=== PATIENT | male | born 1970 | race Hispanic/Latino ===

== ENCOUNTER 2016-12-22 19:18 | Inpatient (IN) | payer MEDICARE ==
[2016-12-22 20:28] LABS: Basophils % (Auto) 0.7 % (0.0-1.8); Eosinophils % (Auto) 2.9 % (0.0-4.3); Hematocrit 41.9 % (35.5-45.6); Hemoglobin 14.1 gm/dl (11.8-15.2); Mean Corpuscular HGB Conc 34 % (32-34); Mean Corpuscular Hemoglobin 32 pg (28-32); Mean Corpuscular Volume 94 fl (84-94); Platelet Count 133 K/mm3 (140-440); Red Blood Count 4.46 M/mm3 (3.65-5.03); Red Cell Distribution Width 13.3 % (13.2-15.2)
[2016-12-22] MEDS ORDERED: SUBLIMAZE IV ONE (20:49)
[2016-12-22] MEDS ORDERED: NITRO-BID 2% TP ONE (20:49)
[2016-12-22] MEDS ORDERED: ZOFRAN IV ONE (20:49)
--- NOTE | 2016-12-22 20:55 | Emergency Department Report ---
HPI - General Chief Complaint: Chest Pain Time Seen by Provider: 12/22/16 19:34 - HPI HPI: Room 19 The patient is a 38-year-old male presenting with a chief complaint of chest pain. Patient is currently at [facility] for suicidal ideation or intent 13. Patient states today he was walking to the gym developed left-sided chest pain described as a pressure or an elephant sitting on his chest. Patient states the pain radiated to his left upper extremity and caused him to fall to the ground. Patient states he became short of breath, diaphoretic and nauseous with the pain. Patient denies vomiting. The patient currently gives his pain a score of 8/10. The patient states his last stress test occurred 3-4 years ago his last cardiac catheterization occurred approximately 4 years ago. Location: Left chest Duration: Constant Quality: Pressure Severity: 8/10 Modifying factors: [see above] Context: [see above] Mode of transportation: [not driving] ED Past Medical Hx - Past Medical History Previous Medical History?: Yes Hx Heart Attack/AMI: Yes (2013) Hx GERD: Yes Hx Psychiatric Treatment: Yes (In [facility] now for ) Additional medical history: chronic pain (herniated disc), depression - Surgical History Past Surgical History?: Yes Hx Cholecystectomy: Yes Hx Appendectomy: Yes - Family History Family history: no significant - Social History Smoking Status: Current Every Day Smoker (1/2 pack per day) Substance Use Type: None (denies illicit drug use) - Medications Home Medications: Home Medications Medication Instructions Recorded Confirmed Last Taken Type Quetiapine Fumarate [SEROquel XR] 300 mg PO QHS 08/30/13 12/09/13 12/06/13 21: 30 History Sertraline HCl [Zoloft] 25 mg PO BID 08/30/13 12/09/13 12/06/13 12:00 History Lisinopril [Zestril TAB] 5 mg PO QDAY #30 tablet 12/15/13 Unknown Rx Nicotine [Habitrol] 21 mg TD QDAY #30 patch 12/15/13 Unknown Rx ED Review of Systems ROS: Stated complaint: CP Other details as noted in HPI Comment: All other systems reviewed and negative Constitutional: diaphoresis. denies: chills, fever Eyes: denies: eye pain, eye discharge, vision change ENT: denies: ear pain, throat pain Respiratory: shortness of breath Cardiovascular: chest pain Endocrine: no symptoms reported Gastrointestinal: nausea. denies: vomiting Genitourinary: denies: urgency, dysuria Musculoskeletal: denies: back pain, joint swelling, arthralgia Skin: denies: rash, lesions Neurological: denies: headache, weakness, paresthesias Psychiatric: suicidal thoughts (at [place]) Hematological/Lymphatic: denies: easy bleeding, easy bruising Physical Exam - Physical Exam Vital Signs: Vital Signs 12/22/16 12/22/16 12/22/16 19:14 19:22 19:30 Temperature 98.2 F Pulse Rate 66 62 Respiratory 19 16 21 Rate Blood Pressure 116/60 116/71 Blood Pressure 116/60 [Left] O2 Sat by Pulse 98 98 Oximetry 12/22/16 12/22/16 12/22/16 19:31 20:00 20:30 Temperature Pulse Rate 66 63 Respiratory 16 18 19 Rate Blood Pressure 106/65 105/66 Blood Pressure [Left] O2 Sat by Pulse 98 98 96 Oximetry Physical Exam: GENERAL: The patient is well-developed well-nourished male lying on stretcher appearing to be in mild discomfort. [] HEENT: Normocephalic. Atraumatic. Extraocular motions are intact. Patient has moist mucous membranes. NECK: Supple. Trachea midline CHEST/LUNGS: Clear to auscultation. There is no respiratory distress noted. HEART/CARDIOVASCULAR: Regular. There is no tachycardia. There is no gallop rub or murmur. ABDOMEN: Abdomen is soft, nontender. Patient has normal bowel sounds. There is no abdominal distention. SKIN: There is no rash. There is no edema. There is no diaphoresis. NEURO: The patient is awake, alert, and oriented. The patient is cooperative. The patient has normal speech MUSCULOSKELETAL: There is no evidence of acute injury. ED Course Vital Signs 12/22/16 12/22/16 12/22/16 19:14 19:22 19:30 Temperature 98.2 F Pulse Rate 66 62 Respiratory 19 16 21 Rate Blood Pressure 116/60 116/71 Blood Pressure 116/60 [Left] O2 Sat by Pulse 98 98 Oximetry 12/22/16 12/22/16 12/22/16 19:31 20:00 20:30 Temperature Pulse Rate 66 63 Respiratory 16 18 19 Rate Blood Pressure 106/65 105/66 Blood Pressure [Left] O2 Sat by Pulse 98 98 96 Oximetry ED Medical Decision Making - Lab Data Result diagrams: 12/22/16 20:05 12/22/16 20:05 Laboratory Tests 12/22/16 12/22/16 12/22/16 20:05 20:05 20:05 WBC 7.0 RBC 4.46 Hgb 14.1 Hct 41.9 MCV 94 MCH 32 MCHC 34 RDW 13.3 Plt Count 133 L Lymph % (Auto) 28.9 [place] % (Auto) 9.0 H Eos % (Auto) 2.9 Baso % (Auto) 0.7 Lymph # 2.0 [place] # 0.6 Eos # 0.2 Baso # 0.1 Seg Neutrophils % 58.5 Seg Neutrophils # 4.1 Sodium 144 Potassium 4.3 Chloride 105.1 Carbon Dioxide 27 Anion Gap 16 BUN 7 L Creatinine 0.8 Estimated GFR > 60 BUN/Creatinine Ratio 8.75 Glucose 86 Calcium 8.7 Total Bilirubin 0.20 AST 14 ALT 12 Alkaline Phosphatase 72 Troponin T < 0.010 Total Protein 5.9 L Albumin 3.4 L Albumin/Globulin Ratio 1.4 12/22/16 22:07 WBC RBC Hgb Hct MCV MCH MCHC RDW Plt Count Lymph % (Auto) [place] % (Auto) Eos % (Auto) Baso % (Auto) Lymph # [place] # Eos # Baso # Seg Neutrophils % Seg Neutrophils # Sodium Potassium Chloride Carbon Dioxide Anion Gap BUN Creatinine Estimated GFR BUN/Creatinine Ratio Glucose Calcium Total Bilirubin AST ALT Alkaline Phosphatase Troponin T < 0.010 Total Protein Albumin Albumin/Globulin Ratio - EKG Data -: EKG Interpreted by Me EKG shows normal: sinus rhythm Rate: normal - EKG Data When compared to previous EKG there are: previous EKG unavailable Interpretation: other (no ischemic changes seen) - Radiology Data Radiology results: image reviewed (chest x-ray) interpreted by me: Chest x-ray-no definite focal infiltrates, no pneumothorax - Differential Diagnosis ACS, malingering, GERD, pericarditis Critical care attestation.: If time is entered above; I have spent that time in minutes in the direct care of this critically ill patient, excluding procedure time. ED Disposition Clinical Impression: Chest pain Disposition: OP ADMIT IP TO THIS HOSP Is pt being admited?: Yes Does the pt Need Aspirin: No (Plavix) Condition: Fair Instructions: Chest Pain (ED) Referrals: PRIMARY CARE, [Primary Care Provider] - 3-5 Days Time of Disposition: 22:58 (hospitalist notified)
[2016-12-22 21:02] LABS: Alanine Aminotransferase 12 units/L (7-56); Albumin 3.4 g/dL (3.9-5); Albumin/Globulin Ratio 1.4 %; Alkaline Phosphatase 72 units/L (35-129); Anion Gap 16 mmol/L; BUN/Creatinine Ratio 8.75; Blood Urea Nitrogen 7 mg/dL (9-20); Calcium 8.7 mg/dL (8.4-10.2); Carbon Dioxide 27 mmol/L (22-30); Chloride 105.1 mmol/L (98-107); Glucose 86 mg/dL (75-100); Potassium 4.3 mmol/L (3.6-5.0); Sodium 144 mmol/L (137-145); Total Protein 5.9 g/dL (6.3-8.2)
--- NOTE | 2016-12-22 21:43 | XRay Report ---
FINAL REPORT EXAM: XR CHEST 1V AP HISTORY: chest pain COMPARISON: None available. FINDINGS: Frontal view(s) of the chest obtained. Cardiac silhouette within normal limits. Shallow inspiration. Crowding of the bronchovascular markings. Mild linear atelectasis at the left lung base. Otherwise, no gross consolidation or effusion. No pneumothorax. Remote left-sided rib fractures. IMPRESSION: Shallow inspiration. Mild linear atelectasis at the left lung base. Lungs are otherwise grossly clear.
--- NOTE | 2016-12-22 22:32 | History and Physical Report ---
History of Present Illness Date of examination: 12/22/16 Date of admission: 12/22/2016 Chief complaint: Left-sided chest pain for last 4-6 hours History of present illness: The patient is a 38-year-old male presenting with a chief complaint of chest pain. Patient is currently at [facility] for suicidal ideation or intent 13. Patient states today he was walking to the gym developed left-sided chest pain described as a pressure or an elephant sitting on his chest. Patient states the pain radiated to his left upper extremity and caused him to fall to the ground. Patient states he became short of breath, diaphoretic and nauseous with the pain. Patient denies vomiting. The patient currently gives his pain a score of 8/10. The patient states his last stress test occurred 3-4 years ago his last cardiac catheterization occurred approximately 4 years ago. Location: Left chest Duration: Constant Quality: Pressure Severity: 8/10 Modifying factors: [see above] Context: [see above] Mode of transportation: [not driving] ED Past Medical Hx - Past Medical History Previous Medical History?: Yes Hx Heart Attack/AMI: Yes (2013) Hx GERD: Yes Hx Psychiatric Treatment: Yes (In [facility] now for ) Additional medical history: chronic pain (herniated disc), depression - Surgical History Past Surgical History?: Yes Hx Cholecystectomy: Yes Hx Appendectomy: Yes - Family History Family history: no significant - Social History Smoking Status: Current Every Day Smoker (1/2 pack per day) Substance Use Type: None (denies illicit drug use) - Medications Home Medications: Home Medications Medication Instructions Recorded Confirmed Last Taken Type Quetiapine Fumarate [SEROquel XR] 300 mg PO QHS 08/30/13 12/09/13 12/06/13 21: 30 History Sertraline HCl [Zoloft] 25 mg PO BID 08/30/13 12/09/13 12/06/13 12:00 History Lisinopril [Zestril TAB] 5 mg PO QDAY #30 tablet 12/15/13 Unknown Rx Nicotine [Habitrol] 21 mg TD QDAY #30 patch 12/15/13 Unknown Rx ED Review of Systems ROS: Stated complaint: CP Other details as noted in HPI Comment: All other systems reviewed and negative Constitutional: diaphoresis. denies: chills, fever Eyes: denies: eye pain, eye discharge, vision change ENT: denies: ear pain, throat pain Respiratory: shortness of breath Cardiovascular: chest pain Endocrine: no symptoms reported Gastrointestinal: nausea. denies: vomiting Genitourinary: denies: urgency, dysuria Musculoskeletal: denies: back pain, joint swelling, arthralgia Skin: denies: rash, lesions Neurological: denies: headache, weakness, paresthesias Psychiatric: suicidal thoughts (at [place]) Hematological/Lymphatic: denies: easy bleeding, easy bruising Past History Past Medical History: CAD, hypertension Medications and Allergies Allergies Allergy/AdvReac Type Severity Reaction Status Date / Time ketorolac tromethamine Allergy Rash Verified 08/30/13 18:53 [From Toradol] tramadol HCl [From Ultram] Allergy Vomiting Verified 08/30/13 18:53 aspirin AdvReac Unknown Unknown Verified 12/22/16 23:47 Home Medications Medication Instructions Recorded Confirmed Last Taken Type Quetiapine Fumarate [SEROquel XR] 300 mg PO QHS 08/30/13 12/09/13 12/06/13 21: 30 History Sertraline HCl [Zoloft] 25 mg PO BID 08/30/13 12/09/13 12/06/13 12:00 History Lisinopril [Zestril TAB] 5 mg PO QDAY #30 tablet 12/15/13 Unknown Rx Nicotine [Habitrol] 21 mg TD QDAY #30 patch 12/15/13 Unknown Rx Review of Systems All systems: negative Exam - Physical Exam Narrative exam: Young male lying comfortably - Constitutional Vitals: Temp Pulse Resp BP Pulse Ox 98.2 F 56 L 16 105/61 94 12/22/16 19:22 12/22/16 21:45 12/22/16 21:45 12/22/16 21:45 12/22/16 21:45 General appearance: Present: no acute distress, well-nourished - EENT Eyes: Present: PERRL ENT: hearing intact, clear oral mucosa - Neck Neck: Present: supple, normal ROM - Respiratory Respiratory effort: normal Respiratory: bilateral: CTA - Cardiovascular Heart Sounds: Present: S1 & S2. Absent: rub, click - Extremities Extremities: pulses symmetrical, No edema Peripheral Pulses: within normal limits - Abdominal General gastrointestinal: Present: soft, non-tender, non-distended, normal bowel sounds Male genitourinary: Present: normal - Integumentary Integumentary: Present: clear, warm, dry - Musculoskeletal Musculoskeletal: gait normal, strength equal bilaterally - Psychiatric Psychiatric: appropriate mood/affect, intact judgment & insight - Neurologic Neurologic: CNII-XII intact, moves all extremities Results - Labs CBC & Chem 7: 12/22/16 20:05 12/23/16 05:03 Labs: Laboratory Last Values WBC 7.0 K/mm3 (4.5-11.0) 12/22/16 20:05 RBC 4.46 M/mm3 (3.65-5.03) 12/22/16 20:05 Hgb 14.1 gm/dl (11.8-15.2) 12/22/16 20:05 Hct 41.9 % (35.5-45.6) 12/22/16 20:05 MCV 94 fl (84-94) 12/22/16 20:05 MCH 32 pg (28-32) 12/22/16 20:05 MCHC 34 % (32-34) 12/22/16 20:05 RDW 13.3 % (13.2-15.2) 12/22/16 20:05 Plt Count 133 K/mm3 (140-440) L 12/22/16 20:05 Lymph % (Auto) 28.9 % (13.4-35.0) 12/22/16 20:05 [place] % (Auto) 9.0 % (0.0-7.3) H 12/22/16 20:05 Eos % (Auto) 2.9 % (0.0-4.3) 12/22/16 20:05 Baso % (Auto) 0.7 % (0.0-1.8) 12/22/16 20:05 Lymph # 2.0 K/mm3 (1.2-5.4) 12/22/16 20:05 [place] # 0.6 K/mm3 (0.0-0.8) 12/22/16 20:05 Eos # 0.2 K/mm3 (0.0-0.4) 12/22/16 20:05 Baso # 0.1 K/mm3 (0.0-0.1) 12/22/16 20:05 Seg Neutrophils % 58.5 % (40.0-70.0) 12/22/16 20:05 Seg Neutrophils # 4.1 K/mm3 (1.8-7.7) 12/22/16 20:05 Sodium 144 mmol/L (137-145) 12/22/16 20:05 Potassium 4.3 mmol/L (3.6-5.0) 12/22/16 20:05 Chloride 105.1 mmol/L (98-107) 12/22/16 20:05 Carbon Dioxide 27 mmol/L (22-30) 12/22/16 20:05 Anion Gap 16 mmol/L 12/22/16 20:05 BUN 7 mg/dL (9-20) L 12/22/16 20:05 Creatinine 0.8 mg/dL (0.8-1.5) 12/22/16 20:05 Estimated GFR > 60 ml/min 12/22/16 20:05 BUN/Creatinine Ratio 8.75 % 12/22/16 20:05 Glucose 86 mg/dL (75-100) 12/22/16 20:05 Calcium 8.7 mg/dL (8.4-10.2) 12/22/16 20:05 Total Bilirubin 0.20 mg/dL (0.1-1.2) 12/22/16 20:05 AST 14 units/L (5-40) 12/22/16 20:05 ALT 12 units/L (7-56) 12/22/16 20:05 Alkaline Phosphatase 72 units/L (35-129) 12/22/16 20:05 Troponin T < 0.010 ng/mL (0.00-0.029) 12/22/16 20:05 Total Protein 5.9 g/dL (6.3-8.2) L 12/22/16 20:05 Albumin 3.4 g/dL (3.9-5) L 12/22/16 20:05 Albumin/Globulin Ratio 1.4 % 12/22/16 20:05 Short CBC 12/22/16 Range/Units 20:05 WBC 7.0 (4.5-11.0) K/mm3 Hgb 14.1 (11.8-15.2) gm/dl Hct 41.9 (35.5-45.6) % Plt Count 133 L (140-440) K/mm3 BMP 12/22/16 20:05 Sodium 144 Potassium 4.3 Chloride 105.1 Carbon Dioxide 27 BUN 7 L Creatinine 0.8 Glucose 86 Calcium 8.7 Cardiac Enzymes 12/22/16 Range/Units 20:05 Troponin T < 0.010 (0.00-0.029) ng/mL Liver Function 12/22/16 Range/Units 20:05 Total Bilirubin 0.20 (0.1-1.2) mg/dL AST 14 (5-40) units/L ALT 12 (7-56) units/L Alkaline Phosphatase 72 (35-129) units/L Albumin 3.4 L (3.9-5) g/dL Short CBC 12/22/16 Range/Units 20:05 WBC 7.0 (4.5-11.0) K/mm3 Hgb 14.1 (11.8-15.2) gm/dl Hct 41.9 (35.5-45.6) % Plt Count 133 L (140-440) K/mm3 BMP 12/22/16 12/23/16 20:05 05:03 Sodium 144 144 Potassium 4.3 3.9 Chloride 105.1 104.8 Carbon Dioxide 27 26 BUN 7 L 9 Creatinine 0.8 0.8 Glucose 86 83 Calcium 8.7 8.9 Cardiac Enzymes 12/22/16 12/22/16 12/22/16 Range/Units 20:05 22:07 23:13 Total Creatine Kinase 43 L (55-170) units/L CK-MB (CK-2) 1.1 (0.0-4.0) ng/mL Troponin T < 0.010 < 0.010 < 0.010 (0.00-0.029) ng/mL 12/23/16 12/23/16 Range/Units 01:43 05:03 Total Creatine Kinase 43 L (55-170) units/L CK-MB (CK-2) 1.1 (0.0-4.0) ng/mL Troponin T < 0.010 < 0.010 (0.00-0.029) ng/mL Liver Function 12/22/16 12/23/16 Range/Units 20:05 05:03 Total Bilirubin 0.20 0.20 (0.1-1.2) mg/dL AST 14 13 (5-40) units/L ALT 12 12 (7-56) units/L Alkaline Phosphatase 72 70 (35-129) units/L Albumin 3.4 L 3.5 L (3.9-5) g/dL - Imaging and Cardiology EKG: report reviewed (normal sinus rhythm no acute ST-T wave changes EKG interpreted by me) Assessment and Plan Advance Directives: Yes (full code) VTE prophylaxis?: Chemical Plan of care discussed with patient/family: Yes - Patient Problems (1) Chest pain Current Visit: Yes Status: Acute Qualifiers: Chest pain type: unspecified Ischemic chest pain type: I Qualified Code(s ): R07.9 - Chest pain, unspecified Plan to address problem: Chest pain rule out MN. Chest pain protocol. Lexiscan ordered. Serial cardiac enzymes. (2) Depression Current Visit: No Status: Acute Qualifiers: Depression Type: D Major depression recurrence: M Active/Remission status : A Major depression episode severity: M Psychotic features: P Trimester: T Plan to address problem: Continue Seroquel. (3) DVT prophylaxis Current Visit: No Status: Acute
[2016-12-22] MEDS ORDERED: DULCOLAX PR PRN (22:42)
[2016-12-22] MEDS ORDERED: MILK OF MAGNESIA PO PRN (22:42)
[2016-12-22] MEDS ORDERED: ZOFRAN IV PRN (22:42)
[2016-12-22] MEDS ORDERED: AMBIEN PO PRN (22:42)
[2016-12-22] MEDS ORDERED: PERCOCET 5/325 PO PRN (22:42)
[2016-12-22] MEDS ORDERED: TYLENOL PO PRN (22:42)
[2016-12-22] MEDS ORDERED: SODIUM CHLORIDE FLUSH SYRINGE 10 ML IV PRN (22:45)
--- NOTE | 2016-12-22 22:58 | Admit Criteria Form ---
Admission Criteria Documentation: CARDIOLOGY GRG Clinical Indications for Admission to Inpatient Care ( Place 'X' for any and all applicable criteria): Hospital admission is needed for appropriate care of the patient because of ANY ONE of the following (1): [ ] I. Hemodynamic instability as indicated by ALL of the following (1)(2)(3) (4)(5) [ ]a) Vital signs or other findings not as expected for chronic patient condition or baseline [ ]b) Instability indicated by ANY ONE of the following: [ ]i) Hypotension [ ]ii) Symptomatic Tachycardia unresponsive to treatment ( e.g., analgesia, fluids, sedation as indicated) [ ]iii) Inadequate perfusion indicated by ANY ONE of the following: [ ] 1) Lactic acidosis (> 2 mmol/L) [ ] 2) New abnormal capillary refill (> 3 seconds) [ ] 3) Reduced urine output [ ] 4) New altered mental status [ ]iv) Orthostatic vital sign changes unresponsive to treatment (e.g., fluids) [ ]v) IV inotropic or vasopressor medication required to maintain adequate blood pressure or perfusion [ ] II. Severe heart failure as indicated by ANY ONE of the following(17)(18) [ ]a) Respiratory distress [ ]b) Hypotension [ ]c) Anasarca (refractory to outpatient therapy) [ ]d) Cardiac arrhythmias of immediate concern [ ]e) Myocardial ischemia [ ] III. Cardiac arrhythmias or findings of immediate concern indicated by ANY ONE of the following (19)(20): [ ] a) Heart rhythms that are inherently dangerous or unstable indicated by ANY ONE of the following (21)(22)(23): [ ] i) Resuscitated ventricular fibrillation or cardiac arrest [ ] ii) Ventricular escape rhythm [ ] iii) Sustained ventricular tachycardia (30 seconds or more of ventricular rhythm at greater than 100 beats per minute) [ ] iv) Nonsustained ventricular tachycardia and ANY ONE of the following: [ ] 1) Suspected cardiac ischemia as cause or consequence of ventricular tachycardia [ ] 2) In setting of acute myocarditis [ ] b) Unstable cardiac conduction defects indicated by ANY ONE of the following(23)(24)(25) [ ] i) Type II second-degree atrioventricular block [ ]ii) Third-degree atrioventricular block [ ]iii) New-onset left bundle branch block with suspected myocardial ischemia [ ]c) Any heart rhythm and ANY ONE of the following (21)(22)(26)(27) (28) [ ] i) Continuous long-term ECG monitoring needed (e.g., initiation of drug requiring monitoring for more than 24 hours) [ ] ii) Patient has automatic implanted cardioverter defibrillator that is repeatedly firing, malfunctioning, or in need of immediate adjustment of settings beyond the scope of ambulatory or observation care [ ]d) Heart rhythms of concern due to ANY ONE of the following: [ ] i) Hypotension [ ] ii) Respiratory distress [ ] iii) Association with other significant symptoms (e.g., bradycardia with syncope or ongoing dizziness, supraventricular tachycardia with chest pain (14)(15)(17) [ ] IV. Monitoring for cardiac contusion beyond the scope of observation care needed [A](30)(31)(32) [ ] V. Surgical or device complication (e.g., valve replacement complication , pacemaker dysfunction) (35)(41)(44)(45)(46) [ ] . Inpatient palliative care needed. [B](49) Also use Inpatient Palliative Care Criteria [ ] VII. Nonbacterial thrombotic (marantic) endocarditis (36)(43)(47)(48) [X ] VIII. Cardiology condition, symptom, or finding for which emergency and observation care has failed or are not considered appropriate. [ ] IX. Acute valvular disease requiring inpatient as indicated by ANY ONE of the following (41) [ ]a) Acute valvular regurgitation (42) [ ]b) Noninfectious valvulitis (43) [ ]c) Obstructive valve thrombosis [ ]d) Paravalvular leak [ ]e) Other significant valvular disorder remaining after emergency or observation level of care (as appropriate) [ ]X. Pericardial disease requiring inpatient treatment as indicated by ANY ONE of the following (33)(34)(35)(36)(37) [ ]a) Suspected tamponade (38)(39)(40) [ ]b) Hemopericardium [ ]c) Other significant pericardial disorder remaining after emergency or observation level of care (as appropriate) [ ] XI. Cardiac ischemia beyond scope of emergency and observation care. [ ] XII. Hypertension requiring inpatient treatment as indicated by ANY ONE of the following (6)(7)(8) [ ]a) SBP greater than 220 mm Hg or DBP greater than 120 mmHg despite treatment [ ]b) SBP greater than 140 mm Hg or DBP greater than 100 mm Hg with evidence of acute end organ damage as indicated by ANY ONE of the following [ ] i) Altered mental status [ ] ii) Acute renal failure as indicated by new onset of ANY ONE of the following (9)(10)(11)(12)(13) [ ]1) 3-fold rise in serum creatinine from baseline [ ]2) Serum creatinine greater than 4 mg/dL ( 354 micromoles/L) with acute rise greater than 0.5 mg/dL (44.2 micromoles/L) [ ]3) Reduction of more than 75% in estimated glomerular filtration rate from baseline [ ]4) Estimated glomerular filtration rate less than 35 mL/min/1.73m2 (0.59 mL/sec/1.73m2) in child up to 18 years of age [ ]5) Cessation of urine output indicated by ALL of the following [ ]A. Adequate volume status [ ]B. Inadequate urine output as indicated by ANY ONE of the following [ ]a. Urine output less than 0.3 mL/kg/hr for 24 hours [ ]b. Anuria (urine output less than 0.1 mL/kg/hr) for 12 hours [ ] iii) Aortic dissection [ ] iv) Myocardial Ischemia [ ] v) Left ventricular heart failure [ ]vi) Retinal Hemorrhage [ ]vii) Other significant finding [ ]c) Hypertension in child requiring inpatient treatment as indicated by ALL of the following(14)(15)(16) [ ] i) Outpatient treatment not effective, not available, or not appropriate [ ]ii) SBP or DBP greater than 95th percentile for age [ ]iii) Evidence of acute end organ damage as indicated by ANY ONE of the following [ ]1) Altered mental status [ ]2) Acute renal failure as indicated by new onset of ANY ONE of the following(9)(10)(11)(12)(13) [ ]A. 3-fold rise in serum creatinine from baseline [ ]B. Serum creatinine greater than 4 mg/dL (354 micromoles/L) with acute rise greater than 0.5 mg/dL (44.2 micromoles/L) [ ]C. Reduction of more than 75% in estimated glomerular filtration rate from baseline [ ]D. Estimated glomerular filtration rate less than 35 mL/min/1.73m2 (0.59 mL/sec/1.73m2) in child up to 18 years of age [ ]E. Cessation of urine output indicated by ALL of the following [ ]a. Adequate volume status [ ]b. Inadequate urine output as indicated by ANY ONE of the following [ ]i) Urine output less than 0.3 mL/kg/hr for 24 hours [ ]ii) Anuria ( urine output less than 0.1 mL/kg/hr) for 12 hours [ ]3) Severe headache [ ]4) Visual disturbance [ ]5) Retinal hemorrhage [ ]6) Other significant finding [ ]XIII. Complications of transplanted heart indicated by ANY ONE of the following(61): [ ]a) Acute graft rejection requiring inpatient management (eg, intravenous immunosuppression)(62)(63) [ ]b) Acute graft heart failure indicated by ANY ONE of the following(64): [ ]i) Hemodynamic instability [ ]ii) Cardiac arrhythmias of immediate concern [ ]iii) Pulmonary edema that is very severe (eg, mechanical ventilation needed, imminent or likely, need for 100% oxygen to keep oxygen saturation above 90%) [ ]iv) Pulmonary edema that is persistent as indicated by ALL of the following: [ ]1) New need for oxygen therapy to keep oxygen saturation above 90% (or increased FiO2 need from baseline) [ ]2) Has not improved sufficiently with emergency department or observation care IV diuretics or other heart failure treatments[E] [ ]v) Altered mental status that is severe or persistent [ ]vi) Increased creatinine (new on laboratory test) with reduction of more than 50% in estimated glomerular filtration rate from baseline [ ]vii) Progressively (ongoing) rising creatinine (known from past laboratory test) with reduction of more than 25% in estimated glomerular filtration rate from baseline [ ]viii) Acute renal failure [ ]ix) Acute peripheral ischemia (eg, examination shows pulseless, cool, mottled, or cyanotic extremity) [ ]x) Pulmonary artery catheter monitoring needed [ ]xi) Other sign or symptom of heart failure requiring inpatient treatment (ie, too severe or not responsive to outpatient and observation care treatment) [ ]c) Infection requiring inpatient management (eg, Hemodynamic instability, need for intravenous antimicrobial treatment)(66)(67)(68)(69)(70) [ ]d) Cardiac allograft vasculopathy requiring inpatient management ( eg evidence of cardiac ischemia)(71) [ ]e) Other complication of transplanted heart (eg, stroke, severe pulmonary hypertension, severe valvular dysfunction) requiring inpatient management(72) The original [facility] [employer] content created by [facility] has been revised. The portions of the content which have been revised are identified through the use of italic text or in bold, and [facility] has neither reviewed nor approved the modified material. All other unmodified content is copyright [facility]. Please see references footnoted in the original [facility] edition 2016 Admission Criteria Met: Yes
[2016-12-23 01:44] LABS: Creatine Kinase MB 1.1 ng/mL (0.0-4.0)
[2016-12-23] MEDS: DILAUDID IV PRN ×6 (01:46→21:19)
[2016-12-23 01:49] LABS: Creatine Kinase 43 units/L (55-170)
[2016-12-23 06:02] LABS: Alanine Aminotransferase 12 units/L (7-56); Albumin 3.5 g/dL (3.9-5); Albumin/Globulin Ratio 1.3 %; Alkaline Phosphatase 70 units/L (35-129); Anion Gap 17 mmol/L; BUN/Creatinine Ratio 11.25; Blood Urea Nitrogen 9 mg/dL (9-20); Calcium 8.9 mg/dL (8.4-10.2); Carbon Dioxide 26 mmol/L (22-30); Chloride 104.8 mmol/L (98-107); Glucose 83 mg/dL (75-100); Potassium 3.9 mmol/L (3.6-5.0); Sodium 144 mmol/L (137-145); Total Protein 6.1 g/dL (6.3-8.2)
[2016-12-23 06:35] LABS: Creatine Kinase MB 1.1 ng/mL (0.0-4.0)
[2016-12-23 06:37] LABS: Creatine Kinase 43 units/L (55-170)
[2016-12-23] MEDS ORDERED: LEXISCAN IV ONE ×2 (09:22→09:30)
--- NOTE | 2016-12-23 10:40 | Progress Note ---
Assessment and Plan Assessment and plan: Patient is a 38-year-old man with history of depression, acute MA, hypertension , tobacco dependency and GERD who presents from [facility] for suicide ideation under 1013 with complaints of chest pains. Cardiac enzymes and troponin negative. EKG report reviewed normal sinus no acute ST changes. Patient refuses stress test this morning. Portable chest x-ray shows shallow inspiration, mild linear atelectasis at the left lung base otherwise clear. -Chest pain, patient refuses stress test this morning, atypical: Counseling done and risk explained -Major depressive disorder, chronic and worsening: Consult mental health -Suicidal ideation under 1013: Continue sitter -Hypertension: Continue antihypertensive -DVT prophylaxis: Subcutaneous Lovenox -Tobacco dependency: Counseling done to stop Full code Await mental health evaluation, if he refused stress test and sent back to [facility]. History Interval history: Patient seen and examined. Here for chest pain. Overnight uneventful. No sob, n/v or severe headaches. Imaging, old records, testing, labs, nursing notes reviewed. Hospitalist Physical - Physical exam Narrative exam: GEN: WDWN, NAD, AWAKE, ALERT, ORIENTATED x 3 CVS: RRR, NORMAL S1S2 LUNGS/CHEST: CTA B, NORMAL CHEST EXPANSION B, GOOD AIR ENTRY B ABD: SOFT, NTND, GBS, NO REBOUND OR GUARDING EXT/SKIN: NO SIGNIFICANT EDEMA OR RASH MSK: FROM X 4 EXTREMITIES NEURO: CN 2-12 GROSSLY INTACT, NO FOCAL DEFICITS PSY: Anxious, poor insight and judgment - Constitutional Vitals: Temp Pulse Resp BP Pulse Ox 98.5 F 84 18 117/81 99 12/23/16 07:15 12/23/16 08:02 12/23/16 07:15 12/23/16 07:15 12/23/16 07:55 General appearance: Present: no acute distress, well-nourished Results - Labs CBC & Chem 7: 12/22/16 20:05 12/23/16 05:03 Labs: Laboratory Last Values WBC 7.0 K/mm3 (4.5-11.0) 12/22/16 20:05 RBC 4.46 M/mm3 (3.65-5.03) 12/22/16 20:05 Hgb 14.1 gm/dl (11.8-15.2) 12/22/16 20:05 Hct 41.9 % (35.5-45.6) 12/22/16 20:05 MCV 94 fl (84-94) 12/22/16 20:05 MCH 32 pg (28-32) 12/22/16 20:05 MCHC 34 % (32-34) 12/22/16 20:05 RDW 13.3 % (13.2-15.2) 12/22/16 20:05 Plt Count 133 K/mm3 (140-440) L 12/22/16 20:05 Lymph % (Auto) 28.9 % (13.4-35.0) 12/22/16 20:05 [place] % (Auto) 9.0 % (0.0-7.3) H 12/22/16 20:05 Eos % (Auto) 2.9 % (0.0-4.3) 12/22/16 20:05 Baso % (Auto) 0.7 % (0.0-1.8) 12/22/16 20:05 Lymph # 2.0 K/mm3 (1.2-5.4) 12/22/16 20:05 [place] # 0.6 K/mm3 (0.0-0.8) 12/22/16 20:05 Eos # 0.2 K/mm3 (0.0-0.4) 12/22/16 20:05 Baso # 0.1 K/mm3 (0.0-0.1) 12/22/16 20:05 Seg Neutrophils % 58.5 % (40.0-70.0) 12/22/16 20:05 Seg Neutrophils # 4.1 K/mm3 (1.8-7.7) 12/22/16 20:05 Sodium 144 mmol/L (137-145) 12/23/16 05:03 Potassium 3.9 mmol/L (3.6-5.0) 12/23/16 05:03 Chloride 104.8 mmol/L (98-107) 12/23/16 05:03 Carbon Dioxide 26 mmol/L (22-30) 12/23/16 05:03 Anion Gap 17 mmol/L 12/23/16 05:03 BUN 9 mg/dL (9-20) 12/23/16 05:03 Creatinine 0.8 mg/dL (0.8-1.5) 12/23/16 05:03 Estimated GFR > 60 ml/min 12/23/16 05:03 BUN/Creatinine Ratio 11.25 % 12/23/16 05:03 Glucose 83 mg/dL (75-100) 12/23/16 05:03 Calcium 8.9 mg/dL (8.4-10.2) 12/23/16 05:03 Total Bilirubin 0.20 mg/dL (0.1-1.2) 12/23/16 05:03 AST 13 units/L (5-40) 12/23/16 05:03 ALT 12 units/L (7-56) 12/23/16 05:03 Alkaline Phosphatase 70 units/L (35-129) 12/23/16 05:03 Total Creatine Kinase 43 units/L (55-170) L 12/23/16 05:03 CK-MB (CK-2) 1.1 ng/mL (0.0-4.0) 12/23/16 05:03 CK-MB (CK-2) Rel Index 2.5 (0-4) 12/23/16 05:03 Troponin T < 0.010 ng/mL (0.00-0.029) 12/23/16 05:03 Total Protein 6.1 g/dL (6.3-8.2) L 12/23/16 05:03 Albumin 3.5 g/dL (3.9-5) L 12/23/16 05:03 Albumin/Globulin Ratio 1.3 % 12/23/16 05:03
[2016-12-23] MEDS: HABITROL TD SCH ×2 (12:15→16:16)
[2016-12-23] MEDS: LOVENOX SUB-Q SCH (12:16)
[2016-12-23] MEDS: ZOLOFT PO SCH ×2 (12:17→21:20)
[2016-12-23] MEDS: PEPCID PO SCH ×2 (12:17→21:20)
[2016-12-23] MEDS: ZESTRIL PO SCH (12:17)
--- NOTE | 2016-12-24 01:02 | Treadmill Report ---
THALLIUM STRESS TEST REPORT LEFT VENTRICLE: Left ventricular chamber size is within normal. Perfusion study demonstrates small fixed basal inferior defect with no significant reversibility on the resting study. Gated analysis demonstrates normal left ventricular systolic function, ejection fraction 63%. CONCLUSION: Small fixed basal inferior defect appears consistent with diaphragmatic attenuation artifact, otherwise homogeneous uptake of the study, negative study. [facility]# [id number] CA/NTS
[2016-12-24] MEDS: DILAUDID IV PRN ×2 (01:14→06:15)
[2016-12-24 07:32] VITALS: BP 106/69
--- NOTE | 2016-12-24 10:42 | Discharge Summary ---
Providers - Providers Date of Admission: 12/22/16 22:42 Date of discharge: 12/24/16 Attending physician: IVORY PETER 12/22/16 Consult to Cardiac Rehabilitation [CONS] Routine Reason For Exam: Phase I 12/23/16 16:08 Consult to Mental Health [CONS] Routine Reason For Exam: Suicidal ideation Place consult to:: Mental health Office 1st floor Notified:: Ladgiovani who answered the phone Phone number called:: [phone] Was contact made?: Yes If yes, spoke with:: ladgiovani who answered the phone Time called:: 16:10 Comment:: Mental health stated they would put him on their list Primary care physician: SCHEDULE ANALYST Hospitalization Condition: Fair Hospital course: Patient is a 38-year-old man with history of depression, acute [place], hypertension , tobacco dependency and GERD who presents from [facility] for suicide ideation under 1013 with complaints of chest pains. Cardiac enzymes and troponin negative. EKG report reviewed normal sinus no acute ST changes. Portable chest x-ray shows shallow inspiration, mild linear atelectasis at the left lung base otherwise clear. His myocardial stress test was normal. He was discharged back [facility] facility in stable condition. Discharge diagnoses: -Chest pain, stress test was normal. Likely due to GERD. -Major depressive disorder, on seroquel -Suicidal ideation under 1013: Placed with sitter -Hypertension: Continue antihypertensive -Tobacco dependency: Counseling done for cessation Disposition: DC/TX-65 PSY HOSP/PSY UNIT Time spent for discharge: 32 min Core Measure Documentation - Palliative Care Palliative Care/ Comfort Measures: Not Applicable - Core Measures Any of the following diagnoses?: history only Exam - Constitutional Vitals: Temp Pulse Resp BP Pulse Ox 98.3 F 55 L 18 106/69 100 12/24/16 07:31 12/24/16 07:31 12/24/16 07:31 12/24/16 07:31 12/24/16 07:31 General appearance: Present: no acute distress, well-nourished - EENT Eyes: Present: PERRL ENT: hearing intact, clear oral mucosa - Neck Neck: Present: supple, normal ROM - Respiratory Respiratory effort: normal Respiratory: bilateral: CTA - Cardiovascular Heart Sounds: Present: S1 & S2. Absent: rub, click - Extremities Extremities: pulses symmetrical, No edema Peripheral Pulses: within normal limits - Abdominal General gastrointestinal: Present: soft, non-tender, non-distended, normal bowel sounds - Integumentary Integumentary: Present: clear, warm, dry - Musculoskeletal Musculoskeletal: gait normal, strength equal bilaterally - Psychiatric Psychiatric: appropriate mood/affect, intact judgment & insight - Neurologic Neurologic: CNII-XII intact, moves all extremities Plan Activity: advance as tolerated Weight Bearing Status: Weight Bear as Tolerated Diet: low fat, low cholesterol Follow up with: PRIMARY CARE, [Primary Care Provider] - 3-5 Days Prescriptions: Famotidine [Pepcid] 20 mg PO BID #60 tablet
[2016-12-24] MEDS: HABITROL TD SCH (10:45)
[2016-12-24] MEDS: PEPCID PO SCH (10:47)
[2016-12-24] MEDS: LOVENOX SUB-Q SCH (10:47)
[2016-12-24] MEDS: ZOLOFT PO SCH (10:48)
[2016-12-24] MEDS: ZESTRIL PO SCH (10:48)
--- NOTE | 2016-12-24 12:49 | Query- Chest Pain ---
Alfredo Olson Maddie Date: 12/24/16 Supervising Film Or Videotape Editor/CDS:____[place] Phone#:____[phone] Exercise your independent professional judgment when responding to query. Questions asked do not imply a particular answer is desired or expected. We greatly appreciate your clarification on this issue. Clinical Documentation States: 46 year old male was admitted on 12/22/16. The discharge summary states " Hospital course: The patient is a 38-year-old male presenting with a chief complaint of chest pain. Patient is currently at [facility] for suicidal ideation or intent 13. Discharge diagnoses: (1) Chest pain Current Visit: Yes Status: Acute Qualifiers: Chest pain type: unspecified Ischemic chest pain type: I Qualified Code(s ): R07.9 - Chest pain, unspecified Plan to address problem: Chest pain rule out KS. Chest pain protocol. Lexiscan ordered. Serial cardiac enzymes. (2) Depression Current Visit: No Status: Acute Qualifiers: Depression Type: D Major depression recurrence: M Active/Remission status : A Major depression episode severity: M Psychotic features: P Trimester: T Plan to address problem: Continue Seroquel. Disposition: DC/TX-65 PSY HOSP/PSY UNIT Time spent for discharge: 32 min " Please document the etiology of Chest Pain: [ ] Myocardial Infarction [ ] Pneumonia [ ] Mediastinitis [ ] Costochondritis [ ] Pulmonary Embolism [ ] Coronary Artery Disease [ X] GERD [ ] Other: [ ] Comment/Explanation: Present on Admission: [ X] Yes (Y) [ ] Clinically undeterminable (W) [ ] No(N) Please document response in your Progress Notes and/or Discharge Summary and indicate if the condition was present on admission. HERMILA
== END 2016-12-24 15:30 | DRG 392 ==
LOC: ED 19:18 → 4A 22:42
PROVIDERS: ADMIT Internal Medicine; ATTEND Internal Medicine
DX: K21.9 Gastro-esophageal reflux disease without esophagitis (principal); R45.851 Suicidal ideations; F32.9 Major depressive disorder, single episode, unspecified; G89.29 Other chronic pain; F17.210 Nicotine dependence, cigarettes, uncomplicated; I25.2 Old myocardial infarction; Z88.8 Allergy status to other drugs, medicaments and biological substances; Z88.6 Allergy status to analgesic agent; Z90.49 Acquired absence of other specified parts of digestive tract
CPT/HCPCS: 36415; 71010; 78452; 80053; 82550; 82553; 84484; 85025; 93005; 93010; 93017; 96374; 96375; A9502; J1170; J1650; J2405; J2785; J3010

== ENCOUNTER 2016-12-24 17:26 | Emergency (ER) | payer MEDICARE ==
--- NOTE | 2016-12-24 18:29 | Emergency Department Report ---
Entered by CORNELIO BUSTOS, acting as scribe for TUCKER CALLAHAN NP. Chief Complaint: Psych Stated Complaint: SUICIDAL THOUGHTS Time Seen by Provider: 12/24/16 18:07 - HPI History of Present Illness: 46 y/o male, PMHx of bipolar disorder and depression, c/o left sided chest pain. PT states he was dc'd from hospital today for chest pain. PT states when he went back to his psych facility, he was told that he was dc'd. . Associated pain radiating to the left arm, neck, and jaw, nausea, change in appetite and SI with no plan - ROS Review of Systems: + chest pain +nausea + changes in appetite +SI with no plan + Pain radiating to the neck and jaw - Exam Vital Signs: Vital Signs 12/24/16 18:09 Temperature 97.4 F L Pulse Rate 62 Respiratory 18 Rate Blood Pressure 100/74 O2 Sat by Pulse 100 Oximetry Physical Exam: Constitutional: The patient is a well-developed, well-nourished, in no apparent distress. Patient is alert and oriented x3. pt has a flat affect, admits to feeling suicidal, no active plan MSE screening note: Focused history and physical exam performed. Due to findings the following was ordered: ekg, xr, labs ED Disposition for MSE Condition: Stable This documentation as recorded by the scribe,CORNELIO BUSTOS,accurately reflects the service I personally performed and the decisions made by ,TUCKER CALLAHAN, AERIAL PHOTOGRAMMETRIST.
[2016-12-24 18:44] LABS: Basophils % (Auto) 0.5 % (0.0-1.8); Eosinophils % (Auto) 1.6 % (0.0-4.3); Hemoglobin 17.2 gm/dl (11.8-15.2); Mean Corpuscular HGB Conc 34 % (32-34); Mean Corpuscular Hemoglobin 31 pg (28-32); Mean Corpuscular Volume 93 fl (84-94); Platelet Count 184 K/mm3 (140-440); Red Blood Count 5.49 M/mm3 (3.65-5.03); Red Cell Distribution Width 13.4 % (13.2-15.2); White Blood Count 9.8 K/mm3 (4.5-11.0)
[2016-12-24 19:01] LABS: Urine Drugs of Abuse Note Disclamer
[2016-12-24 19:06] LABS: Creatine Kinase MB 1.3 ng/mL (0.0-4.0)
[2016-12-24 19:08] LABS: Alanine Aminotransferase 20 units/L (7-56); Albumin 4.7 g/dL (3.9-5); Albumin/Globulin Ratio 1.2 %; Alkaline Phosphatase 101 units/L (35-129); Anion Gap 18 mmol/L; BUN/Creatinine Ratio 16.25; Blood Urea Nitrogen 13 mg/dL (9-20); Calcium 10.1 mg/dL (8.4-10.2); Carbon Dioxide 27 mmol/L (22-30); Chloride 95.4 mmol/L (98-107); Creatine Kinase 62 units/L (55-170); Glucose 96 mg/dL (75-100); Potassium 5.1 mmol/L (3.6-5.0); Sodium 135 mmol/L (137-145); Total Protein 8.5 g/dL (6.3-8.2)
[2016-12-24 19:13] LABS: Bilirubin,Urine NEG (Negative); Blood,Urine NEG (Negative); Ketones,Urine NEG (Negative); Leukocyte Esterase,Urine NEG (Negative); Nitrite,Urine NEG (Negative); Protein,Urine <15 mg/dL mg/dL (Negative); Urobilinogen,Urine < 2.0 mg/dL (<2.0); WBC,Urine < 1.0 /HPF (0.0-6.0)
[2016-12-24] MEDS ORDERED: ZOFRAN IV ONE (23:04)
[2016-12-24] MEDS ORDERED: BENADRYL IV ONE (23:04)
[2016-12-24] MEDS ORDERED: SUBLIMAZE IV ONE (23:04)
--- NOTE | 2016-12-24 23:09 | Emergency Department Report ---
HPI - General Chief Complaint: Psych Time Seen by Provider: 12/24/16 18:07 - HPI HPI: Room 8 The patient is a 46-year-old male presenting with a chief complaint of chest pain. Patient was seen and admitted to the hospital myself 2 days ago for chest pain. The patient underwent a stress test which was negative and was eventually discharged. The patient states he went home and 1.5 hours later began having chest pain again so he decided to come to the hospital for further evaluation. Patient denies suicidal or homicidal ideation. Patient denies auditory or visual hallucinations. Patient states he was discharged from [facility] and there is no sitter present. Location: Chest Duration: [see above] Quality: Pain Severity: Moderate Modifying factors: [see above] Context: [see above] Mode of transportation: [not driving] ED Past Medical Hx - Past Medical History Hx Heart Attack/AMI: Yes (2013) Hx GERD: Yes Hx Psychiatric Treatment: Yes (In [facility] now for ) Additional medical history: chronic pain (herniated disc), depression, BIPOLAR - Surgical History Hx Cholecystectomy: Yes Hx Appendectomy: Yes - Social History Smoking Status: Current Every Day Smoker Substance Use Type: Marijuana - Medications Home Medications: Home Medications Medication Instructions Recorded Confirmed Last Taken Type Quetiapine Fumarate [SEROquel XR] 300 mg PO QHS 08/30/13 12/23/16 1 Day Ago History Sertraline HCl [Zoloft] 25 mg PO BID 08/30/13 12/23/16 1 Day Ago History Lisinopril [Zestril TAB] 5 mg PO QDAY #30 tablet 12/15/13 12/23/16 1 Day Ago Rx Nicotine [Habitrol] 21 mg TD QDAY #30 patch 12/15/13 12/23/16 1 Day Ago Rx Famotidine [Pepcid] 20 mg PO BID #60 tablet 12/24/16 Unknown Rx HYDROcodone/APAP 5-325 [Bryan 1 - 2 each PO Q6HR PRN #7 tablet 12/25/16 Unknown Rx 5/325] ED Review of Systems ROS: Stated complaint: SUICIDAL THOUGHTS Other details as noted in HPI Comment: All other systems reviewed and negative Eyes: denies: eye pain, eye discharge, vision change ENT: denies: ear pain, throat pain Respiratory: denies: cough, shortness of breath, wheezing Cardiovascular: chest pain Endocrine: no symptoms reported Gastrointestinal: denies: abdominal pain, nausea, diarrhea Genitourinary: denies: urgency, dysuria Musculoskeletal: denies: back pain, joint swelling, arthralgia Skin: denies: rash, lesions Neurological: denies: headache, weakness, paresthesias Psychiatric: denies: anxiety, depression, auditory hallucinations, visual hallucinations, homicidal thoughts, suicidal thoughts Hematological/Lymphatic: denies: easy bleeding, easy bruising Physical Exam - Physical Exam Vital Signs: Vital Signs 12/24/16 18:09 Temperature 97.4 F L Pulse Rate 62 Respiratory 18 Rate Blood Pressure 100/74 O2 Sat by Pulse 100 Oximetry Physical Exam: GENERAL: The patient is well-developed well-nourished male lying on stretcher not appearing to be in acute distress. [] HEENT: Normocephalic. Atraumatic. Extraocular motions are intact. Patient has moist mucous membranes. NECK: Supple. Trachea midline CHEST/LUNGS: Clear to auscultation. There is no respiratory distress noted. HEART/CARDIOVASCULAR: Regular. There is no tachycardia. There is no gallop rub or murmur. ABDOMEN: Abdomen is soft, nontender. Patient has normal bowel sounds. There is no abdominal distention. SKIN: There is no rash. There is no edema. There is no diaphoresis. NEURO: The patient is awake, alert, and oriented. The patient is cooperative. The patient has normal speech MUSCULOSKELETAL: There is no evidence of acute injury. ED Course Vital Signs 12/24/16 18:09 Temperature 97.4 F L Pulse Rate 62 Respiratory 18 Rate Blood Pressure 100/74 O2 Sat by Pulse 100 Oximetry ED Medical Decision Making - Lab Data Result diagrams: 12/24/16 18:21 12/24/16 18:21 Laboratory Tests 12/24/16 12/24/16 12/24/16 18:21 18:21 18:21 WBC 9.8 RBC 5.49 H Hgb 17.2 H D Hct 51.0 H D MCV 93 MCH 31 MCHC 34 RDW 13.4 Plt Count 184 Lymph % (Auto) 19.0 [place] % (Auto) 8.0 H Eos % (Auto) 1.6 Baso % (Auto) 0.5 Lymph # 1.9 [place] # 0.8 Eos # 0.2 Baso # 0.0 Seg Neutrophils % 70.9 H Seg Neutrophils # 7.0 Sodium 135 L D Potassium 5.1 H D Chloride 95.4 L Carbon Dioxide 27 Anion Gap 18 BUN 13 Creatinine 0.8 Estimated GFR > 60 BUN/Creatinine Ratio 16.25 Glucose 96 Calcium 10.1 Total Bilirubin 0.30 AST 22 ALT 20 Alkaline Phosphatase 101 Total Creatine Kinase 62 CK-MB (CK-2) 1.3 CK-MB (CK-2) Rel Index 2.0 Troponin T < 0.010 Total Protein 8.5 H D Albumin 4.7 Albumin/Globulin Ratio 1.2 Urine Color Urine Turbidity Urine pH Ur Specific Agate Urine Protein Urine Glucose (UA) Urine Ketones Urine Blood Urine Nitrite Urine Bilirubin Urine Urobilinogen Ur Leukocyte Esterase Urine WBC (Auto) Urine RBC (Auto) Salicylates < 0.3 L Urine Opiates Screen Urine Methadone Screen Acetaminophen Ur Barbiturates Screen Ur Phencyclidine Scrn Ur Amphetamines Screen U Benzodiazepines Scrn Urine Cocaine Screen U Marijuana (THC) Screen Drugs of Abuse Note Plasma/Serum Alcohol 12/24/16 12/24/16 12/24/16 18:21 18:21 18:30 WBC RBC Hgb Hct MCV MCH MCHC RDW Plt Count Lymph % (Auto) [place] % (Auto) Eos % (Auto) Baso % (Auto) Lymph # [place] # Eos # Baso # Seg Neutrophils % Seg Neutrophils # Sodium Potassium Chloride Carbon Dioxide Anion Gap BUN Creatinine Estimated GFR BUN/Creatinine Ratio Glucose Calcium Total Bilirubin AST ALT Alkaline Phosphatase Total Creatine Kinase CK-MB (CK-2) CK-MB (CK-2) Rel Index Troponin T Total Protein Albumin Albumin/Globulin Ratio Urine Color Yellow Urine Turbidity Clear Urine pH 6.0 Ur Specific [place]ate 1.010 Urine Protein <15 mg/dl Urine Glucose (UA) Neg Urine Ketones Neg Urine Blood Neg Urine Nitrite Neg Urine Bilirubin Neg Urine Urobilinogen < 2.0 Ur Leukocyte Esterase Neg Urine WBC (Auto) < 1.0 Urine RBC (Auto) 1.0 Salicylates Urine Opiates Screen Urine Methadone Screen Acetaminophen < 15.0 Ur Barbiturates Screen Ur Phencyclidine Scrn Ur Amphetamines Screen U Benzodiazepines Scrn Urine Cocaine Screen U Marijuana (THC) Screen Drugs of Abuse Note Plasma/Serum Alcohol < 0.01 12/24/16 18:30 WBC RBC Hgb Hct MCV MCH MCHC RDW Plt Count Lymph % (Auto) [place] % (Auto) Eos % (Auto) Baso % (Auto) Lymph # [place] # Eos # Baso # Seg Neutrophils % Seg Neutrophils # Sodium Potassium Chloride Carbon Dioxide Anion Gap BUN Creatinine Estimated GFR BUN/Creatinine Ratio Glucose Calcium Total Bilirubin AST ALT Alkaline Phosphatase Total Creatine Kinase CK-MB (CK-2) CK-MB (CK-2) Rel Index Troponin T Total Protein Albumin Albumin/Globulin Ratio Urine Color Urine Turbidity Urine pH Ur Specific Agate Urine Protein Urine Glucose (UA) Urine Ketones Urine Blood Urine Nitrite Urine Bilirubin Urine Urobilinogen Ur Leukocyte Esterase Urine WBC (Auto) Urine RBC (Auto) Salicylates Urine Opiates Screen Presumptive negative Urine Methadone Screen Presumptive negative Acetaminophen Ur Barbiturates Screen Presumptive negative Ur Phencyclidine Scrn Presumptive negative Ur Amphetamines Screen Presumptive negative U Benzodiazepines Scrn Presumptive negative Urine Cocaine Screen Presumptive negative U Marijuana (THC) Screen Presumptive positive Drugs of Abuse Note Disclamer Plasma/Serum Alcohol - EKG Data -: EKG Interpreted by [facility] EKG shows normal: sinus rhythm Rate: bradycardia (59 bpm) - EKG Data When compared to previous EKG there are: no significant change Interpretation: unchanged when compared t (12/23/2016) - Radiology Data Radiology results: report reviewed (CT chest), image reviewed (CT chest) CT chest (read by radiologist)-there is no evidence of arterial emboli. Mild atelectasis bilateral lower lungs - Differential Diagnosis PE, GERD, malingering Critical care attestation.: If time is entered above; I have spent that time in minutes in the direct care of this critically ill patient, excluding procedure time. ED Disposition Clinical Impression: Chest pain Disposition: DC-01 TO HOME OR SELFCARE Is pt being admited?: No Does the pt Need Aspirin: No Condition: Stable Instructions: Chest Pain (ED) Additional Instructions: Return to the emergency department immediately should you develop worsening symptoms, fever, inability to tolerate food or liquid or any other concerns. Prescriptions: HYDROcodone/APAP 5-325 [Bryan 5/325] 1 - 2 each PO Q6HR PRN #7 tablet PRN Reason: Pain Referrals: [facility] [Other] - 3-5 Days Time of Disposition: 04:40
[2016-12-25] MEDS ORDERED: NACL ONE (00:42)
--- NOTE | 2016-12-25 01:24 | Cat Scan Report ---
FINAL REPORT PROCEDURE: CT ANGIO CHEST TECHNIQUE: Computerized tomographic angiography of the chest was performed after the IV injection of iodinated nonionic contrast including image processing. The image data was postprocessed using 2-dimensional multiplanar reformatted (MPR) and 3-dimensional (MIP and/or volume rendered) techniques. HISTORY: chest pain COMPARISON: No prior studies are available for comparison. FINDINGS: Heart and pericardium: Normal. Thoracic aorta: Normal. Pulmonary vasculature: Normal. Lymph nodes: No enlarged thoracic lymph nodes. Lungs: Slight atelectasis identified in both lower lungs. No consolidation, effusion or pneumothorax. The central airway is patent.. Pleural space: No effusion, thickening, or pneumothorax. Musculoskeletal structures: No significant abnormality. Upper abdominal structures: Gallbladder has been removed.. IMPRESSION: There is no evidence of pulmonary arterial emboli. Mild atelectasis bilateral lower lungs.
--- NOTE | 2016-12-25 07:38 | XRay Report ---
CHEST 2 VIEWS INDICATION: Chest pain. COMPARISON: 12/22/2016. FINDINGS: PA and lateral chest radiographs demonstrate normal cardiomediastinal silhouette. Clear lungs. Mild mid thoracic spine degenerative spurring. CONCLUSION: No acute disease in the chest. Thank you for the opportunity to participate in this patient's care.
[2016-12-25 08:00] VITALS: BP 98/69
[2016-12-25] MEDS ORDERED: NORCO 5/325 PO ONE (08:12)
== END 2016-12-25 11:50 ==
LOC: ED 17:26 → EEVIPCON 17:26 → ED 12-25 11:50
DX: R07.9 Chest pain, unspecified (principal); K21.9 Gastro-esophageal reflux disease without esophagitis; R45.851 Suicidal ideations; F31.9 Bipolar disorder, unspecified; G89.29 Other chronic pain; I25.2 Old myocardial infarction; F17.200 Nicotine dependence, unspecified, uncomplicated; F12.10 Cannabis abuse, uncomplicated; Z88.6 Allergy status to analgesic agent; Z88.8 Allergy status to other drugs, medicaments and biological substances
CPT/HCPCS: 36415; 71020; 71275; 80053; 80307; 81001; 82550; 82553; 84484; 85025; 93005; 93010; 96374; 96375; 99285; G0480; J1200; J2405; J3010; Q9967; 80320

== ENCOUNTER 2016-12-26 21:09 | Emergency (ER) | payer MEDICARE ==
[2016-12-26 21:27] VITALS: BP 118/83
[2016-12-26] MEDS ORDERED: LIDOCAINE VISCOUS 2% PO ONE (21:59)
[2016-12-26] MEDS ORDERED: ALUM-MAG HYDROX-SIMETH 200-200-20MG/5ML PO ONE (21:59)
[2016-12-26] MEDS ORDERED: PEPCID IV ONE (21:59)
--- NOTE | 2016-12-26 22:03 | Emergency Department Report ---
HPI - General Chief Complaint: Chest Pain Time Seen by Provider: 12/26/16 21:56 - HPI HPI: Room 1 The patient is a 46-year-old male presenting with chief complaint of chest pain. This is the patient's third visit in the past 4 days. The patient was admitted by myself 4 days ago for chest pain where he underwent a stress test which was negative. The patient was eventually discharged. The patient returned to the emergency department 2 days ago still complaining of chest pain. Patient underwent a CT scan of the chest by myself which was also negative. The patient states it again developed chest pain tonight causing him to come to the emergency department. Patient states he has not followed up with any physicians since his discharge from the hospital. Of note the patient had a normal cardiac catheterization performed 07/26/2013 which was read as "there are no significant coronary lesions. Left ventricular ejection fraction is at the lower limits of normal, approximately 50%." Location: Chest Duration: [see above] Quality: Pain Severity: Moderate Modifying factors: [see above] Context: [see above] Mode of transportation: [not driving] ED Past Medical Hx - Past Medical History Hx Heart Attack/AMI: Yes (2013) Hx GERD: Yes Hx Psychiatric Treatment: Yes Additional medical history: chronic pain (herniated disc), depression, BIPOLAR - Surgical History Hx Cholecystectomy: Yes Hx Appendectomy: Yes - Social History Smoking Status: Current Every Day Smoker Substance Use Type: None - Medications Home Medications: Home Medications Medication Instructions Recorded Confirmed Last Taken Type Famotidine [Pepcid] 20 mg PO BID #20 tablet 12/26/16 Unknown Rx Ondansetron [Zofran ODT TAB] 8 mg PO Q8HR #20 tab.rapdis 12/26/16 Unknown Rx ED Review of Systems ROS: Stated complaint: CHEST PAIN Other details as noted in HPI Comment: All other systems reviewed and negative Constitutional: denies: chills, fever Eyes: denies: eye pain, eye discharge, vision change ENT: denies: ear pain, throat pain Respiratory: denies: cough, shortness of breath, wheezing Cardiovascular: chest pain Endocrine: no symptoms reported Gastrointestinal: nausea, vomiting Genitourinary: denies: urgency, dysuria Musculoskeletal: denies: back pain, joint swelling, arthralgia Skin: denies: rash, lesions Neurological: denies: headache, weakness, paresthesias Psychiatric: denies: anxiety, depression, auditory hallucinations, visual hallucinations, homicidal thoughts, suicidal thoughts Hematological/Lymphatic: denies: easy bleeding, easy bruising Physical Exam - Physical Exam Vital Signs: Vital Signs 12/26/16 21:24 Temperature 98.1 F Pulse Rate 70 Respiratory 14 Rate Blood Pressure 118/83 [Left] O2 Sat by Pulse 98 Oximetry Physical Exam: GENERAL: The patient is well-developed well-nourished male lying on stretcher not appear to be in acute distress. [] HEENT: Normocephalic. Atraumatic. Extraocular motions are intact. Patient has moist mucous membranes. NECK: Supple. Trachea midline CHEST/LUNGS: Clear to auscultation. There is no respiratory distress noted. HEART/CARDIOVASCULAR: Regular. There is no tachycardia. There is no gallop rub or murmur. ABDOMEN: Abdomen is soft, nontender. Patient has normal bowel sounds. There is no abdominal distention. SKIN: There is no rash. There is no edema. There is no diaphoresis. NEURO: The patient is awake, alert, and oriented. The patient is cooperative. The patient has normal speech MUSCULOSKELETAL: There is no evidence of acute injury. ED Course Vital Signs 12/26/16 21:24 Temperature 98.1 F Pulse Rate 70 Respiratory 14 Rate Blood Pressure 118/83 [Left] O2 Sat by Pulse 98 Oximetry ED Medical Decision Making - Lab Data Result diagrams: 12/26/16 21:43 12/26/16 21:43 Laboratory Tests 12/26/16 12/26/16 21:43 21:43 WBC 10.7 RBC 4.87 Hgb 15.5 H Hct 45.5 MCV 94 MCH 32 MCHC 34 RDW 13.4 Plt Count 167 Lymph % (Auto) 28.5 [place] % (Auto) 9.8 H Eos % (Auto) 2.3 Baso % (Auto) 0.6 Lymph # 3.0 [place] # 1.0 H Eos # 0.3 Baso # 0.1 Seg Neutrophils % 58.8 Seg Neutrophils # 6.3 Sodium 137 Potassium 4.5 Chloride 96.1 L Carbon Dioxide 26 Anion Gap 19 BUN 21 H Creatinine 0.8 Estimated GFR > 60 BUN/Creatinine Ratio 26.25 Glucose 81 Calcium 9.9 Troponin T < 0.010 - EKG Data -: EKG Interpreted by [facility] EKG shows normal: sinus rhythm Rate: normal - EKG Data When compared to previous EKG there are: no significant change Interpretation: unchanged when compared t (no significant change when compared to previous EKG dated 12/25/2016) - Differential Diagnosis GERD, esophageal spasm, malingering Critical care attestation.: If time is entered above; I have spent that time in minutes in the direct care of this critically ill patient, excluding procedure time. ED Disposition Clinical Impression: Chest pain Disposition: DC- TO HOME OR SELFCARE Is pt being admited?: No Does the pt Need Aspirin: No Condition: Stable Instructions: Chest Pain (ED) Additional Instructions: Return to the emergency department immediately should you develop worsening symptoms, fever, inability to tolerate food or liquid or any other concerns. Prescriptions: Famotidine [Pepcid] 20 mg PO BID #20 tablet Ondansetron [Zofran ODT TAB] 8 mg PO Q8HR #20 tab.rapdis Referrals: [facility] [Outside] - 3-5 Days PRANEETH ALBERTO MD [Staff Physician] - 3-5 Days (Dr. Alberto is a flavorings compounder. Please follow up with him for further evaluation) SEGUNDO MURRAY MD [Staff Physician] - 3-5 Days (Dr. Murray is a primary physician. Please follow up with him to be established as a patient) Time of Disposition: 22:26
[2016-12-26] MEDS ORDERED: ZOFRAN IV ONE (22:06)
[2016-12-26 22:09] LABS: Basophils % (Auto) 0.6 % (0.0-1.8); Eosinophils % (Auto) 2.3 % (0.0-4.3); Hematocrit 45.5 % (35.5-45.6); Hemoglobin 15.5 gm/dl (11.8-15.2); Mean Corpuscular HGB Conc 34 % (32-34); Mean Corpuscular Hemoglobin 32 pg (28-32); Mean Corpuscular Volume 94 fl (84-94); Platelet Count 167 K/mm3 (140-440); Red Blood Count 4.87 M/mm3 (3.65-5.03); Red Cell Distribution Width 13.4 % (13.2-15.2); White Blood Count 10.7 K/mm3 (4.5-11.0)
[2016-12-26 22:18] LABS: Anion Gap 19 mmol/L; BUN/Creatinine Ratio 26.25; Blood Urea Nitrogen 21 mg/dL (9-20); Calcium 9.9 mg/dL (8.4-10.2); Carbon Dioxide 26 mmol/L (22-30); Chloride 96.1 mmol/L (98-107); Glucose 81 mg/dL (75-100); Potassium 4.5 mmol/L (3.6-5.0); Sodium 137 mmol/L (137-145)
== END 2016-12-26 23:27 | disposition home or self-care (01) ==
LOC: ED 21:09
DX: R07.9 Chest pain, unspecified (principal); F17.210 Nicotine dependence, cigarettes, uncomplicated; I25.2 Old myocardial infarction; K21.9 Gastro-esophageal reflux disease without esophagitis; F31.9 Bipolar disorder, unspecified; Z90.49 Acquired absence of other specified parts of digestive tract
CPT/HCPCS: 36415; 80048; 84484; 85025; 93005; 93010; 96374; 96375; 99285; J2405